=== PATIENT | male | born 1965 | race Caucasian/White ===

== ENCOUNTER 2016-12-15 05:50 | Day surgery (SDC) | payer OTHER ==
[~2016-12-15 05:50] MED LIST: AMLODIPINE BESY10 MG PO; CALCITRIOL0.5 MCG PO; COZAAR100 MG PO; INDERAL LA120 MG PO; LEVOTHROID25 MCG PO; LOPID600 MG PO; M930 ML MISC; PERCOCET 5-3251 EACH PO; PERCOCET 7.5-31 EACH PO; PRAVACHOL20 MG PO; PROMETHAZINE HC25 M1 PO; TORSEMIDE20 MG PO; VERAPAMIL ER120 MG PO; VITAMIN D2000 UNI1 PO; ZESTRIL20 MG PO; ZYLOPRIM100 MG PO
[2016-12-15] MEDS ORDERED: VITAMIN K100 MCG PO (06:04)
[2016-12-15] MEDS ORDERED: CAPTOPRIL25 MG PO (06:07)
[2016-12-15] MEDS ORDERED: EPOGEN20000 UNIT INJ (06:07)
[2016-12-15] MEDS ORDERED: LOVASTATIN10 MG PO (06:08)
[2016-12-15] MEDS ORDERED: LEVOTHYROXINE25 MCG PO (06:08)
[2016-12-15] MEDS ORDERED: OXYCODON-ACETA1 EAC2 PO (10:13)
[2016-12-15] MEDS ORDERED: CIPRO500 MG PO (10:16)
--- NOTE | 2016-12-20 13:10 | OR ---
[facility] [address], [place] [address] Signed DATE OFSERVICE: 12/15/2016 PREOPERATIVE DIAGNOSES: Chronic renal failure with peritoneal dialysis. Incarcerated ventral hernia, region of umbilicus. POSTOPERATIVE DIAGNOSES: Chronic renal failure with peritoneal dialysis. Incarcerated ventral hernia, region of umbilicus. PROCEDURE: 1. Repair of incarcerated ventral hernia (prolonged complicated difficulty). 2. Implantation of Prolene mesh (underlay technique properitoneal space). 3. Placement of drain. SURGEON: Ivet Stevens MD ANESTHESIA: General endotracheal (Feli Gudino MANAGER [employer]) and local, 30 mL 0.25% Marcaine with epinephrine. INDICATION: A 51-year-old white man, a patient Dr. Diallo, has undergone laparoscopic cholecystectomy by me in the past. He has since that time developed chronic renal failure for which he uses nighttime peritoneal dialysis. 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 He is noted to have a hernia in the region of the umbilicus with incarcerated bowel based on CT scan findings and Valsalva maneuver. He is also noted to have a right inguinal hernia, which is occasionally uncomfortable, but has only hernia fat. Given his complicating factor of daily peritoneal dialysis, special consideration for repair of the ventral hernia is made at this time. Implantation of Prolene mesh in the properitoneal space with preservation of the peritoneal envelope is anticipated so as to allow for peritoneal dialysis right away. The patient understands this special risks of operation in this situation including, but not limited to bleeding, infection, recurrent hernia, leakage with peritoneal dialysis, possible need for temporary conventional hemodialysis and so on. Understanding this, he wishes to proceed. FINDINGS: A complex hernia sac was noted within the subcutaneous space and once dissected free, the properitoneal space was well-developed. Hernia sacs did require excision, as he had firm fibrous necks to them and reduction of them without excision of the sacswould be hazardous for internal organ herniation even if the fascial defect was Electronically Signed By: IVET STEVENS MD 12/20/16 1310 PATIENT NAME: LEONARD RAMÍREZ OPERATIVE REPORT DATE OF : 69 PHYSICIAN: IVET STEVENS MD REPORT #: [id number] REPORT IS CONFIDENTIAL AND NOT TO BE RELEASED WITHOUT AUTHORIZATION [facility] [address], [place] [address] Signed closed. Closure of the perineum was accomplished in a watertight way allowing for implantation of Prolene mesh into the properitoneal space. The mesh was secured with interrupted Prolene sutures with Prolene pledgets, and the midline fascia was reapproximated as well. A drain was placed on the unlikely the possible consideration of fluid drainage with immediate peritoneal lavage anticipated tonight. There were no complications, but the operation was prolonged complicated and difficult. DESCRIPTION OF PROCEDURE: The patient was brought to the operating room, given a general endotracheal anesthetic. Sequential compression device stocking was used and heparin subcutaneously administered. The peritoneal dialysis catheter under the abdomen from the left side and extended to the pelvis based on CT scan imaging, which was available duringthe course of the operation. An incision was made cephalad to the umbilicus. Dissection carried through the subcutaneous tissue and using blunt dissection, a firm rubbery hernia sacs initially thought likely to contain a herniated viscus were dissected free from the subcutaneous space. With meticulous care, the hernia sacs were dissected free from the fascial edge developing well the properitoneal space circumferentially. The fascial defect itself was approximately 6 cm or so. The properitoneal space was developed in such a way, there was no leakage of peritoneal fluid. The rubbery hernia sacs were uncertain as to whether they contained a hollow viscus. Ultimately, they were incised and opened and examined and found not to contain hollow viscus, but only some omentum, which was reduced into the peritoneal cavity. The hernia sacs were excised, as it had firm fibrous neck and simple reduction would allow for hazard of internal hernia. Once excised, passed for permanent pathology. The peritoneal edges were reapproximated with running 2-0 PDS suture in a locking configuration and providing for watertight closure. A segment of Prolene meshwas cut to an elliptical configuration with Overlap on each fascial edge of at least 4 cm.These were secured with interrupted 0 Prolene sutures with Prolene pledgets. Midline fascia was similarly reapproximated with a Prolene and Prolene pledget pledgets. A stab incision was made in the right upper abdomen and through it, a 7-mm flat [place] drain was placed into the subcutaneous space. Shonda's layer was reapproximated with interrupted 2-0 Vicryl and skin closed with running subcuticular 3-0 Vicryl. Steri-Strips were applied, as was the Mepilex silver sponge dressing on an op site. The drain was attached to bulb suction and did not have much output. The patient tolerated the procedure well. BLOOD LOSS: Minimal. Electronically Signed By: IVET STEVENS MD 12/20/16 1310 PATIENT NAME: LEONARD RAMÍREZ OPERATIVE REPORT DATE OF : 69 PHYSICIAN: IVET STEVENS MD REPORT #: [id number] REPORT IS CONFIDENTIAL AND NOT TO BE RELEASED WITHOUT AUTHORIZATION [facility] [address] [address] Signed COMPLICATIONS: None. Photographs were taken throughout the course of dissection, but the final hernia repair was not photographed due to battery problems in the camera. The operation was prolonged, omplicated, and difficult lasting3 times longer than usual. MD RIZWAN Candelario/Farrah /[id number] cc: Dr. Diallo Electronically Signed By: IVET STEVENS MD 12/20/16 1310 PATIENT NAME: LEONARD RAMÍREZ OPERATIVE REPORT DATE OF : 69 PHYSICIAN: IVET STEVENS MD REPORT #: [id number] REPORT IS CONFIDENTIAL AND NOT TO BE RELEASED WITHOUT AUTHORIZATION
[2017-02-22] MEDS ORDERED: LEVITRA2.5 MG PO (15:03)
[2017-02-22] MEDS ORDERED: NEPHRO-VITE RX1 EACH PO (15:04)
[2017-03-18] MEDS ORDERED: PRAVASTATIN SOD20 MG PO (15:22)
== END 2016-12-15 12:35 | disposition home or self-care (01) ==
LOC: DS 05:50
PROVIDERS: Surgery
PROC: 0WHG33Z Insertion of Infusion Device into Peritoneal Cavity, Percutaneous Approach (ICD-10-PCS; 2016-12-15)
PROC: 0WUF0JZ Supplement Abdominal Wall with Synthetic Substitute, Open Approach (ICD-10-PCS; principal; 2016-12-15 06:45)
DX: K43.6 Other and unspecified ventral hernia with obstruction, without gangrene (principal); I12.9 Hypertensive chronic kidney disease with stage 1 through stage 4 chronic kidney disease, or unspecified chronic kidney disease; D63.1 Anemia in chronic kidney disease; N18.4 Chronic kidney disease, stage 4 (severe); E78.2 Mixed hyperlipidemia; Z99.2 Dependence on renal dialysis; M10.9 Gout, unspecified; E03.9 Hypothyroidism, unspecified; Z90.49 Acquired absence of other specified parts of digestive tract
CPT/HCPCS: 00750; C1781; J0330; J0690; J1100; J1170; J1644; J2250; J2405; J2704; J3010; J7030

== ENCOUNTER 2017-03-23 05:50 | Day surgery (SDC) | payer OTHER ==
[~2017-03-23] VITALS: Ht 180.3 cm; Wt 95.2 kg
[~2017-03-23 05:50] MED LIST changes: +CAPTOPRIL25 MG PO; +CIPRO500 MG PO; +EPOGEN20000 UNIT INJ; +LEVITRA2.5 MG PO; +LEVOTHYROXINE25 MCG PO; +LOVASTATIN10 MG PO; +NEPHRO-VITE RX1 EACH PO; +OXYCODON-ACETA1 EAC2 PO; +PRAVASTATIN SOD20 MG PO; +VITAMIN K100 MCG PO
--- NOTE | 2017-03-23 08:51 | NUR ---
03/23/17 0851 JulyKelvin medina SAT 100, O2 DECREASED TO 6L VIA MASK.
[2017-03-23] MEDS ORDERED: MAPAP325 MG PO (09:08)
[2017-03-23] MEDS ORDERED: OXYCODON-ACETA1 EAC2 PO (09:08)
--- NOTE | 2017-03-23 09:43 | NUR ---
APPLESAUCE AND ICED WATER GIVEN. PT EATS APPLESAUCE AND TOLERATES THAT WELL. HOB DOWN AND PATIENT POSITIONS SELF IN LEFT LATERAL POSITION. PT TOLERATES REPOSITIONING FAIR W/DEEP BREATHING NOTED. CALL LIGHT W/IN REACH. SPOUSE @ BS.
--- NOTE | 2017-03-23 10:38 | NUR ---
PT ASLEEP WHEN RN ENTERS ROOM. PT WAKES EASILY TO RN VOICE AND FALLS QUICKLY BACK TO SLEEP WHEN LEFT UNSTIMULATED. PT REPORTS PAIN IS ACCEPTABLE. SPOUSE REMAINS @ BS.
--- NOTE | 2017-03-23 11:37 | NUR ---
PT WAKES TO LOUD RN VOICE. PT'S SPOUSE REPORTS PULSE OX ALARM 3 TIMES IN THE LAST HOUR. MORE ICED WATER GIVEN. PT UP TO BR W/RN STANDBY. PT AMBULATES WELL AND DENIES DIZZINESS. PT VOIDS 225 DARK YELLOW URINE AND REQ DC HOME. VERBAL DC INSTRUCTIONS GIVEN IN PRESENCE OF SPOUSE AND BOTH VERBALIZE UNDERSTANDING.
--- NOTE | 2017-04-09 07:48 | OR ---
[facility] [address], [place] [address] Signed DATE OF PROCEDURE: 03/23/17 PREOPERATIVE DIAGNOSES Right inguinal hernia. Chronic renal failure with peritoneal dialysis. POSTOPERATIVE DIAGNOSES Right indirect inguinal hernia. Chronic renal failure with peritoneal dialysis. PROCEDURE Right inguinal hernia repair including high ligation excision of the indirect sac and implantation of Prolene mesh (properitoneal space). ANESTHESIA General LMA (Ivet Coffey CRNA) and local 20 mL of 0.25% Marcaine with Epinephrine. INDICATION This 51-year-old white man is a patient of Dr. Diallo. He is known to me from the past having undergone in the past few months a repair of incisional hernia in the region of the umbilicus. He has chronic renal failure and undergoes peritoneal dialysis on a daily basis. That hernia was repaired well without complication despite the complexity of his situation with peritoneal dialysis. He is noted to have a reducible right inguinal hernia and is admitted at this time to undergo repair. He understands the risks of bleeding, infection, recurrence, and other unforeseen complications and wished to proceed. FINDINGS The hernia was that of an indirect type with a moderately large thickened indirect hernia sac. There was no sign of sliding component or other issue with it. It was mary winston ligated and excised. The floor was moderately attenuated. Implantation of Prolene mesh in an underlay technique in the properitoneal space was accomplished without problem. The relatively large ilioinguinal nerve branch was identified and preserved and not encumbered by repair sutures or other sutures. DESCRIPTION OF PROCEDURE The patient was brought to the operating room, given a general LMA-type anesthetic. Preoperative antibiotic Ancef was given and sequential compression device stockings used and heparin subcutaneously administered. The peritoneal catheter in the region of the umbilicus was elevated cephalad and isolated and the lower abdomen was clipped and prepared with a Chlorhexidine solution and draped sterilely. An incision was made along the line of skin tension cephalad to the pubic tubercle. Dissection was carried through Electronically Signed By: IVET STEVENS MD 04/09/17 0748 PATIENT NAME: LEONARD RAMÍREZ OPERATIVE REPORT DATE OF : 69 PHYSICIAN: IVET STEVENS MD REPORT #: [id number] REPORT IS CONFIDENTIAL AND NOT TO BE RELEASED WITHOUT AUTHORIZATION [facility] [address], [place] [address] Signed the subcutaneous tissue with electrocautery. The external oblique was incised along its fibers revealing the underlying cord. An ilioinguinal nerve branch was dissected free from the cremasteric muscle fibers of the cord and reflected medially around the external oblique out of harms way. Using blunt and electrocautery dissection, the cord was mobilized from the floor and encircled with a Angle drain. The cord was bulky indicative of an indirect sac. The floor showed attenuation of the fascia of the transversalis, but no sign of direct hernia proper. The cremasteric muscle fibers of the cord were transected circumferentially revealing the hernia sac in the anteromedial aspect of the cord. The hernia sac was grasped with the hemostats and fibers of the cord including the vas deferens and so forth were freed from the hernia sac. The hernia sac extended down well into the distal portion of the cord. It was transected circumferentially leaving a cap distally. The hernia sac was then dissected more fully from the cord structures more proximally. The hernia sac was inspected internally showing no sign of sliding component or incarcerated viscus. Under direct visualization, the neck of the hernia sac was sutured closed with 2 separate interrupted 2-0 silk sutures. The redundant hernia sac was amputated and passed for pathology. An Allis clamp was applied to the tendon of the transversus abdominis. The attenuated fibers of the fascia of the transversalis were incised with electrocautery and the properitoneal space bluntly . A segment of Prolene mesh was cut to an elliptical configuration and secured in an underlay technique with interrupted 2-0 Prolene sutures. A defect was cut in the graft to accommodate the cord. The tails of the graft were secured laterally taking special care to avoid encumbrance of the ilioinguinal nerve branch. The aperture for the cord was snug, but not tight; 20 mL 0.25% Marcaine with epinephrine was injected locally for its postoperative analgesic benefit. The cord in the ilioinguinal nerve was replaced into the canal, and the external oblique reapproximated with 2-0 Vicryl suture in a running configuration taking special care to avoid encumbrance of the nerve. The Shonda's layer was reapproximated with interrupted 2-0 Vicryl and skin closed with running subcuticular 3-0 Vicryl. Steri-Strips were applied as was a Mepilex silver sponge dressing and an OpSite. The sponge, needle and counts reported as correct x3. MD RIZWAN Candelario/Farrah Electronically Signed By: IVET STEVENS MD 04/09/17 0748 PATIENT NAME: LEONARD RAMÍREZ OPERATIVE REPORT DATE OF : 69 PHYSICIAN: IVET STEVENS MD REPORT #: [id number] REPORT IS CONFIDENTIAL AND NOT TO BE RELEASED WITHOUT AUTHORIZATION [facility] [address] [place], [place] [address], [place] [address] Signed /[id number] cc: DO Esequiel Sweet DO Electronically Signed By: IVET STEVENS MD 04/09/17 0748 PATIENT NAME: LEONARD RAMÍREZ OPERATIVE REPORT DATE OF : 69 PHYSICIAN: IVET STEVENS MD REPORT #: [id number] REPORT IS CONFIDENTIAL AND NOT TO BE RELEASED WITHOUT AUTHORIZATION
== END 2017-03-23 11:58 | disposition home or self-care (01) ==
LOC: DS 05:50
PROVIDERS: Surgery
PROC: 0YU50JZ Supplement Right Inguinal Region with Synthetic Substitute, Open Approach (ICD-10-PCS; principal; 2017-03-23 06:45)
DX: K40.90 Unilateral inguinal hernia, without obstruction or gangrene, not specified as recurrent (principal); I12.9 Hypertensive chronic kidney disease with stage 1 through stage 4 chronic kidney disease, or unspecified chronic kidney disease; N18.4 Chronic kidney disease, stage 4 (severe); D64.9 Anemia, unspecified; E78.2 Mixed hyperlipidemia; M10.9 Gout, unspecified; J43.9 Emphysema, unspecified; E03.9 Hypothyroidism, unspecified; Z88.0 Allergy status to penicillin; Z79.899 Other long term (current) drug therapy; Z90.49 Acquired absence of other specified parts of digestive tract; Z98.890 Other specified postprocedural states; Z99.2 Dependence on renal dialysis
CPT/HCPCS: 00830; C1781; J0690; J1100; J1644; J1885; J2250; J2405; J2704; J2765; J3010; J7120